=== PATIENT | female | born 1980 | race Two or more races ===

== ENCOUNTER 2019-05-12 17:03 | Emergency (ER) | payer MEDICAID ==
[~2019-05-12] VITALS: Ht 154.9 cm; Wt 74.8 kg
[2019-05-12 17:21] LABS: *URINE HCG, QUAL NEGATIVE (NEGATIVE)
[2019-05-12] MEDS ORDERED: MORPHINE SULFATE 4 MG/1 ML DISP.SYRIN IM ONE (17:30)
[2019-05-12] MEDS ORDERED: MORPHINE SULFATE 4 MG/1 ML DISP.SYRIN ONE (17:42)
[2019-05-12 17:54] VITALS: BP 146/96
--- NOTE | 2019-05-12 17:58 | NUR ---
pt discharged home per MD order. All D/C instructions reviewed and pt verbalizeed understanding. Pt instructed not to drive.
== END 2019-05-12 17:56 | disposition home or self-care (01) ==
LOC: ER 17:07
DX: R07.89 Other chest pain (principal); V49.59XA Passenger injured in collision with other motor vehicles in traffic accident, initial encounter; Y93.89 Activity, other specified; Y92.89 Other specified places as the place of occurrence of the external cause; Y99.8 Other external cause status
CPT/HCPCS: 71045; 84703; 93005; 96372; 99284; J2270; A4663